=== PATIENT | female | born 1985 | race Caucasian/White ===

== ENCOUNTER 2017-08-31 12:06 | Day surgery (SDC) | payer OTHER ==
[2017-08-24 14:29] VITALS: BMI 24.2
[~2017-08-31 12:06] MED LIST: DEXAMETHASONE SOD PHOSPHATE 10 MG/ML 1 ML VIAL IV ONE; DEXAMETHASONE SOD PHOSPHATE 4 MG/ML 1 ML VIAL IV ONE; FAMOTIDINE 20 MG/2 ML VIAL IV ONE; LIDOCAINE 1% 20 ML VIAL (10MG/ML) FOR IV START INTRADERMA PRN; ONDANSETRON 4 MG/2 ML VIAL IVP ONE; SCOPOLAMINE 1.5MG/72HR PATCH TRANSDERM ONE; ceFAZolin IN SWFI 2 GM/20 ML SYRINGE IVP ONE; fentaNYL (PF) 50 MCG/ML 2 ML AMP IV PRN
[2017-08-31] MEDS: OXYMETAZOLINE 0.05% NASL SPRAY 1 SPRAY BOTTLE NASAL ONE ×5 (13:45→14:11)
[2017-08-31] MEDS: LACTATED RINGERS 1,000 ML IV SCH ×2 (13:56→14:53)
[2017-08-31] MEDS ORDERED: fentaNYL (PF) 50 MCG/ML 2 ML AMP ONE (14:53)
[2017-08-31] MEDS ORDERED: MIDAZOLAM 2 MG/2 ML VIAL ONE (14:53)
[2017-08-31] MEDS ORDERED: ROCURONIUM BROMIDE 10 MG/ML 10 ML VIAL IV ONE (14:53)
[2017-08-31] MEDS ORDERED: DEXAMETHASONE SOD PHOS (MDV) 100 MG/10 ML VIAL ONE (14:53)
[2017-08-31] MEDS ORDERED: LIDOCAINE 1% INJ 10MG/ML (20 ML MDV) ONE (14:53)
[2017-08-31] MEDS ORDERED: ONDANSETRON 4 MG/2 ML VIAL ONE (14:53)
[2017-08-31] MEDS ORDERED: PROPOFOL 10 MG/ML 20 ML VIAL IV ONE (14:53)
[2017-08-31] MEDS ORDERED: MEPERIDINE 50 MG/ML SYRINGE ONE (14:53)
[2017-08-31] MEDS ORDERED: LIDOCAINE 1%-EPI 1:100,000 30 ML VIAL SUBMUCOSAL ONE (15:28)
[2017-08-31] MEDS ORDERED: EPINEPHrine 1 MG/ML (MDV) 30 ML VIAL TOPICAL ONE (15:30)
[2017-08-31] MEDS ORDERED: BACITRACIN 500 UNIT/GM OINT 28.4 GM TUBE TOPICAL ONE (16:37)
[2017-08-31] MEDS ORDERED: LACTATED RINGERS 1,000 ML IV ONE (17:07)
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
[2017-08-31 17:49] VITALS: TEMP 97.6
[2017-08-31 18:53] VITALS: RESP 16
[2017-08-31] MEDS ORDERED: HYDROcodone/APAP 5-325MG 1 EACH TAB PO ONE (19:00)
[2017-08-31 19:18] VITALS: BP 121/78; PULSE 84
== END 2017-08-31 20:47 | disposition home or self-care (01) ==
LOC: OR 12:06
PROVIDERS: ATTEND Otolaryngology
DX: J34.2 Deviated nasal septum (principal); M95.0 Acquired deformity of nose; J34.3 Hypertrophy of nasal turbinates; G61.81 Chronic inflammatory demyelinating polyneuritis; H60.543 Acute eczematoid otitis externa, bilateral; J30.9 Allergic rhinitis, unspecified; H90.3 Sensorineural hearing loss, bilateral; F41.9 Anxiety disorder, unspecified; F32.9 Major depressive disorder, single episode, unspecified; Z79.899 Other long term (current) drug therapy; Z79.1 Long term (current) use of non-steroidal anti-inflammatories (NSAID); Z98.51 Tubal ligation status
CPT/HCPCS: 30140; 30420; 81025; 88300; J0171; J2250; J1100 ×2; J2175; J2405; J2001; J3010; J2704; J0690

== ENCOUNTER → 2018-08-10 | Outpatient (CLI) | payer OTHER ==
[2018-08-10 11:34] LABS: Basophils % (A) 1 %; Eosinophils # (A) 0.2 k/uL (0-0.7); Eosinophils % (A) 4 %; HCT 39.7 % (34.0-46.0); HGB 12.4 gm/dL (11.4-16.0); Lymphocytes # (A) 1.5 k/uL (1.0-4.8); Lymphocytes % (A) 34 %; MCH 29.8 pg (25.0-35.0); MCHC 31.1 g/dL (31.0-37.0); MCV 95.8 fL (80.0-100.0); Mean Platelet Volume 8.6; Monocytes # (A) 0.3 k/uL (0-1.0); Monocytes % (A) 6 %; Neutrophils # (A) 2.3 k/uL (1.3-7.7); Neutrophils % (A) 53 %; Platelet Count 206 k/uL (150-450); RBC 4.15 m/uL (3.80-5.40); RDW 12.9 % (11.5-15.5); WBC 4.4 k/uL (3.8-10.6)
== END | disposition home or self-care (01) ==
LOC: LABPAT 10:51
PROVIDERS: ATTEND Obstetrics & Gynecology
DX: Z01.812 Encounter for preprocedural laboratory examination (principal); N93.8 Other specified abnormal uterine and vaginal bleeding
CPT/HCPCS: 36415; 85025

== ENCOUNTER → 2018-08-21 | Day surgery (SDC) | payer OTHER ==
[2018-08-10 12:11] VITALS: BMI 24.2
[~2018-08-21] MED LIST changes: -DEXAMETHASONE SOD PHOSPHATE 4 MG/ML 1 ML VIAL IV ONE; -FAMOTIDINE 20 MG/2 ML VIAL IV ONE; +KETOROLAC 30 MG/ML 1 ML VIAL ONE; +LACTATED RINGERS 1,000 ML IV SCH; +LIDOCAINE 1% INJ 10MG/ML (20 ML MDV) ONE; +LIDOCAINE 1%-EPI 1:100,000 20 ML VIAL SUBMUCOSAL ONE; +MIDAZOLAM 2 MG/2 ML VIAL IV PRN; +MIDAZOLAM 2 MG/2 ML VIAL ONE; +PROPOFOL 10 MG/ML 20 ML VIAL IV ONE; +Pre Op ABX Message 1 EACH MISC MISCELLANE ONE; -ceFAZolin IN SWFI 2 GM/20 ML SYRINGE IVP ONE; -fentaNYL (PF) 50 MCG/ML 2 ML AMP IV PRN; +fentaNYL (PF) 50 MCG/ML 2 ML AMP ONE
[2018-08-21 09:16] VITALS: TEMP 97.6
--- NOTE | 2018-08-21 09:16 | P.OP ---
Date of Procedure: 08/21/18 Preoperative Diagnosis: Dysmenorrhea and menorrhagia Postoperative Diagnosis: Same Procedure(s) Performed: Diagnostic hysteroscopy and NovaSure endometrial ablation Anesthesia: MAC Surgeon: Roxanna Stewart Estimated Blood Loss (ml): 5 IV fluids (ml): 400 Urine output (ml): 100 Pathology: none sent Condition: stable Disposition: PACU Operative Findings: Normal appearing intrauterine cavity with no intracavitary lesions Description of Procedure: After the patient and her family were met in the preoperative holding area and all questions were answered, she was taken to the operating room where anest hetic was administered without incident. Appropriate timeout procedure was undertaken. She was in positioned, prepped and draped in the dorsal lithotomy position. Bladder was drained for approximately 100 mL of clear urine [place] sided speculum was placed in the vagina and the cervix was grasped anteriorly with a single-tooth tenaculum. The uterus was sounded to 7.5 cm. Paracervical block with lidocaine plus epinephrine. The cervix was then sequentially dilated with Hegar dilators. The cervix was quite firm. The tenaculum did pull through of the anterior of the cervix during the dilation process and was replaced. The diagnostic hysteroscope was then introduced and a normal-appearing intrauterine cavity was appreciated. Hysteroscope was removed and the cervix was further dilated to allow for passage of the NovaSure ablation device. The device was inserted with a cavity length of 4.5 cm and a width of 3.1 cm. Cavity assessment test was passed and the device was enabled for a treatment cycle of 88 seconds at a power of 77 W. Following cessation of the treatment cycle the device was removed. The hysteroscope was reintroduced and complete desiccation of the endometrium was appreciated. Hysteroscope was removed. Tenaculum was removed and a single [id number] stitch with 2-0 Vicryl suture was placed at the tenaculum site where it had pulled through. Hemostasis was noted. Speculum was then removed from the vagina. Patient was awoken from anesthetic without incident and transported recovery area in stable condition. All counts reported to me as correct by the operating room staff.
[2018-08-21 09:19] VITALS: RESP 16
[2018-08-21] MEDS: HYDROmorphone 0.5 MG/0.5 ML SYRINGE IVP PRN ×2 (09:27→09:38)
[2018-08-21 10:58] VITALS: BP 110/61; PULSE 63
== END | disposition home or self-care (01) ==
LOC: OR 07:12
PROVIDERS: ATTEND Obstetrics & Gynecology
DX: N92.0 Excessive and frequent menstruation with regular cycle (principal); N94.6 Dysmenorrhea, unspecified; Z98.51 Tubal ligation status; F32.9 Major depressive disorder, single episode, unspecified; Z79.899 Other long term (current) drug therapy
CPT/HCPCS: 81025; 58563; J2250; J1100; J2405; J2001; J3010; J1885; J2704; J1170

== ENCOUNTER 2018-10-11 14:54 | Emergency (ER) | payer OTHER ==
[2018-10-11 15:14] VITALS: TEMP 99
[2018-10-11] MEDS ORDERED: KETOROLAC 30 MG/ML 1 ML VIAL IVP STA (15:31)
[2018-10-11] MEDS ORDERED: SODIUM CHLORIDE 0.9% 1,000 ML IV STA (15:31)
--- NOTE | 2018-10-11 15:56 | ED ---
General Adult HPI - General Chief complaint: Abdominal Pain Stated complaint: Lower R abd pain Time Seen by Provider: 10/11/18 15:15 Source: patient, RN notes reviewed Mode of arrival: ambulatory Limitations: no limitations - History of Present Illness Initial comments: 33-year-old female presents to the emergency department for chief complaint of lower abdominal pain. Patient states that this has been intermittent over the past several months however this worsened significantly today. States it is radiating into her leg and back. States her doctor sent her here as he is concerned for an abscess of the appendix. Denies any fevers or chills. Denies any pain with urinating. States bowel movements have been normal. No nausea or vomiting. Patient states she has had a tubal ligation. She has had an ablation as well. Patient has no other complaints at this time including shortness of breath, chest pain, nausea or vomiting, headache, or visual changes. - Related Data Home Medications Medication Instructions Recorded Confirmed Sertraline [Zoloft] 150 mg PO DAILY 10/26/15 08/10/18 buPROPion XL [Wellbutrin XL] 450 mg PO DAILY 08/10/18 08/10/18 traZODone HCL 50 mg PO HS 08/10/18 08/21/18 Allergies Allergy/AdvReac Type Severity Reaction Status Date / Time No Known Allergies Allergy Verified 08/21/18 07:24 Review of Systems ROS Statement: Those systems with pertinent positive or pertinent negative responses have been documented in the HPI. ROS Other: All systems not noted in ROS Statement are negative. Past Medical History Past Medical History: No Reported History Additional Past Medical History / Comment(s): HX OF CIDP(CHRONIC INFLAMMATORY DEMYELINATING POLYNEUROPATHY (STATES NO WEAKNESS NOW). History of Any Multi-Drug Resistant Organisms: None Reported Past Surgical History: Tubal Ligation, Uterine Ablation Additional Past Surgical History / Comment(s): TISSUE BX A CHILD -LEFT THIGHT AND ANKLE, JAW SURGERY FOR TMJ, D&C Past Anesthesia/Blood Transfusion Reactions: Family History of Problems w/ Anesthesia, Motion Sickness Additional Past Anesthesia/Blood Transfusion Reaction / Comment(s): MOTHER-PONV Past Psychological History: Anxiety, Depression Smoking Status: Never smoker Past Alcohol Use History: Occasional Past Drug Use History: None Reported - Past Family History Father Family Medical History: Hypertension Mother Family Medical History: No Reported History General Exam Limitations: no limitations General appearance: alert, in no apparent distress Head exam: Present: atraumatic, normocephalic, normal inspection Eye exam: Present: normal appearance, PERRL, EOMI. Absent: scleral icterus, conjunctival injection, periorbital swelling ENT exam: Present: normal exam, mucous membranes moist Neck exam: Present: normal inspection, full ROM. Absent: tenderness, meningismus, lymphadenopathy Respiratory exam: Present: normal lung sounds bilaterally. Absent: respiratory distress, wheezes, rales, rhonchi, stridor Cardiovascular Exam: Present: regular rate, normal rhythm, normal heart sounds. Absent: systolic murmur, diastolic murmur, rubs, gallop, clicks GI/Abdominal exam: Present: soft, tenderness (Tenderness noted in the right lower quadrant with guarding), guarding, normal bowel sounds. Absent: distended, rebound, rigid Expanded GI/Abdominal exam: Present: obturator sign, Gunter's sign, Rovsing's sign Course Vital Signs 10/11/18 10/11/18 10/11/18 15:06 15:14 18:14 Temperature 99 F Pulse Rate 88 64 Respiratory 17 18 Rate Blood Pressure 135/98 116/77 O2 Sat by Pulse 98 97 Oximetry Medical Decision Making - Medical Decision Making 33-year-old female presents to the emergency department for chief complaint of right lower quadrant pain. States has been intermittent over the past several months however this worsened significantly today. States it is radiating into her leg and back. Dr. Lelia MEJIA sent her here for concern of appendicitis. Denies any fevers or chills. History of tubal ligation. On examination of the right lower quadrant tenderness without guarding or rebound. Does have a positive obturator sign as well as McBurney point tenderness. CBC CMP un remarkable. Urine does not show any evidence of infection. HCG is negative. CT abdomen and pelvis showed no acute process. Reproductive organs show no significant abnormality. Appendix is negative. Patient is feeling better at this time after Toradol. At this time it could have been a cyst that ruptured which I discussed with patient. However he did tell her to follow up with primary care and CRYPTOLOGIST and to return here if she has any worsening symptoms. She does agree. - Lab Data Result diagrams: 10/11/18 16:10 10/11/18 16:10 Lab Results 10/11/18 10/11/18 10/11/18 Range/Units 16:10 16:10 16:10 WBC 6.0 (3.8-10.6) k/uL RBC 4.24 (3.80-5.40) m/uL Hgb 13.2 (11.4-16.0) gm/dL Hct 39.2 (34.0-46.0) % MCV 92.6 (80.0-100.0) fL MCH 31.2 (25.0-35.0) pg MCHC 33.7 (31.0-37.0) g/dL RDW 12.2 (11.5-15.5) % Plt Count 238 (150-450) k/uL Neutrophils % 65 % Lymphocytes % 24 % Monocytes % 6 % Eosinophils % 3 % Basophils % 1 % Neutrophils # 3.9 (1.3-7.7) k/uL Lymphocytes # 1.5 (1.0-4.8) k/uL Monocytes # 0.4 (0-1.0) k/uL Eosinophils # 0.2 (0-0.7) k/uL Basophils # 0.0 (0-0.2) k/uL Sodium 138 (137-145) mmol/L Potassium 4.2 (3.5-5.1) mmol/L Chloride 107 (98-107) mmol/L Carbon Dioxide 25 (22-30) mmol/L Anion Gap 6 mmol/L BUN 15 (7-17) mg/dL Creatinine 0.75 (0.52-1.04) mg/dL Est GFR (CKD-EPI)AfAm >90 (>60 ml/min/1.73 sqM) Est GFR (CKD-EPI)NonAf >90 (>60 ml/min/1.73 sqM) Glucose 89 (74-99) mg/dL Plasma Lactic Acid Crow (0.7-2.0) mmol/L Calcium 10.1 (8.4-10.2) mg/dL Total Bilirubin 0.4 (0.2-1.3) mg/dL AST 35 (14-36) U/L ALT 20 (9-52) U/L Alkaline Phosphatase 75 (38-126) U/L Total Protein 6.7 (6.3-8.2) g/dL Albumin 4.4 (3.5-5.0) g/dL Amylase 82 (30-110) U/L Lipase 137 (23-300) U/L Urine Color Urine Appearance (Clear) Urine pH (5.0-8.0) Ur Specific Liberal (1.001-1.035) Urine Protein (Negative) Urine Glucose (UA) (Negative) Urine Ketones (Negative) Urine Blood (Negative) Urine Nitrite (Negative) Urine Bilirubin (Negative) Urine Urobilinogen (<2.0) mg/dL Ur Leukocyte Esterase (Negative) Urine RBC (0-5) /hpf Urine WBC (0-5) /hpf Ur Squamous Epith Cells (0-4) /hpf Urine Bacteria (None) /hpf Urine Mucus (None) /hpf Urine HCG, Qual Not Detected (Not Detectd) 10/11/18 10/11/18 Range/Units 16:10 16:10 WBC (3.8-10.6) k/uL RBC (3.80-5.40) m/uL Hgb (11.4-16.0) gm/dL Hct (34.0-46.0) % MCV (80.0-100.0) fL MCH (25.0-35.0) pg MCHC (31.0-37.0) g/dL RDW (11.5-15.5) % Plt Count (150-450) k/uL Neutrophils % % Lymphocytes % % Monocytes % % Eosinophils % % Basophils % % Neutrophils # (1.3-7.7) k/uL Lymphocytes # (1.0-4.8) k/uL Monocytes # (0-1.0) k/uL Eosinophils # (0-0.7) k/uL Basophils # (0-0.2) k/uL Sodium (137-145) mmol/L Potassium (3.5-5.1) mmol/L Chloride (98-107) mmol/L Carbon Dioxide (22-30) mmol/L Anion Gap mmol/L BUN (7-17) mg/dL Creatinine (0.52-1.04) mg/dL Est GFR (CKD-EPI)AfAm (>60 ml/min/1.73 sqM) Est GFR (CKD-EPI)NonAf (>60 ml/min/1.73 sqM) Glucose (74-99) mg/dL Plasma Lactic Acid Crow 0.6 L (0.7-2.0) mmol/L Calcium (8.4-10.2) mg/dL Total Bilirubin (0.2-1.3) mg/dL AST (14-36) U/L ALT (9-52) U/L Alkaline Phosphatase (38-126) U/L Total Protein (6.3-8.2) g/dL Albumin (3.5-5.0) g/dL Amylase (30-110) U/L Lipase (23-300) U/L Urine Color Yellow Urine Appearance Cloudy H (Clear) Urine pH 5.5 (5.0-8.0) Ur Specific Liberal 1.030 (1.001-1.035) Urine Protein Negative (Negative) Urine Glucose (UA) Negative (Negative) Urine Ketones Negative (Negative) Urine Blood Negative (Negative) Urine Nitrite Negative (Negative) Urine Bilirubin Negative (Negative) Urine Urobilinogen <2.0 (<2.0) mg/dL Ur Leukocyte Esterase Negative (Negative) Urine RBC 6 H (0-5) /hpf Urine WBC 2 (0-5) /hpf Ur Squamous Epith Cells 18 H (0-4) /hpf Urine Bacteria Rare H (None) /hpf Urine Mucus Occasional H (None) /hpf Urine HCG, Qual (Not Detectd) Disposition Clinical Impression: Abdominal pain Disposition: HOME SELF-CARE Condition: Good Instructions (If sedation given, give patient instructions): Abdominal Pain (ED) Additional Instructions: Take Motrin and Tylenol for pain. Please follow up with CRYPTOLOGIST and primary care in 1-2 days. If you are having any worsening symptoms be sure to return here to the emergency department for reevaluation. Is patient prescribed a controlled substance at d/c from ED?: No Referrals: Stanton La MD [Primary Care Provider] - 1-2 days Time of Disposition: 19:33
[2018-10-11 16:26] LABS: Basophils % (A) 1 %; Eosinophils # (A) 0.2 k/uL (0-0.7); Eosinophils % (A) 3 %; HCT 39.2 % (34.0-46.0); HGB 13.2 gm/dL (11.4-16.0); Lymphocytes # (A) 1.5 k/uL (1.0-4.8); Lymphocytes % (A) 24 %; MCH 31.2 pg (25.0-35.0); MCHC 33.7 g/dL (31.0-37.0); MCV 92.6 fL (80.0-100.0); Mean Platelet Volume 7.9; Monocytes # (A) 0.4 k/uL (0-1.0); Monocytes % (A) 6 %; Neutrophils # (A) 3.9 k/uL (1.3-7.7); Neutrophils % (A) 65 %; Platelet Count 238 k/uL (150-450); RBC 4.24 m/uL (3.80-5.40); RDW 12.2 % (11.5-15.5)
[2018-10-11 16:36] LABS: ALT 20 U/L (9-52); AST 35 U/L (14-36); Albumin 4.4 g/dL (3.5-5.0); Alkaline Phosphatase 75 U/L (38-126); Amylase 82 U/L (30-110); Anion Gap 6 mmol/L; Blood Urea Nitrogen 15 mg/dL (7-17); Calcium 10.1 mg/dL (8.4-10.2); Carbon Dioxide 25 mmol/L (22-30); Chloride 107 mmol/L (98-107); Glucose 89 mg/dL (74-99); Lipase 137 U/L (23-300); Potassium 4.2 mmol/L (3.5-5.1); Sodium 138 mmol/L (137-145); Total Bilirubin 0.4 mg/dL (0.2-1.3); Total Protein 6.7 g/dL (6.3-8.2)
[2018-10-11 16:43] LABS: Appearance,Urine Cloudy (Clear); Bacteria,Urine Rare /hpf; Bilirubin,Urine Negative (Negative); Blood,Urine Negative (Negative); Color,Urine Yellow; Glucose,Urine (UA) Negative (Negative); Ketones,Urine Negative (Negative); Leukocyte Esterase,Urine Negative (Negative); Mucus,Urine Occasional /hpf; Nitrite,Urine Negative (Negative); PH, Urine 5.5 (5.0-8.0); Protein,Urine Negative (Negative); RBC,Urine 6 /hpf (0-5); Squamous Epithelial Cell,Urine 18 /hpf (0-4); Urobilinogen,Urine <2.0 mg/dL (<2.0); WBC,Urine 2 /hpf (0-5)
--- NOTE | 2018-10-11 18:14 | CT ---
EXAMINATION TYPE: CT abdomen pelvis w con DATE OF EXAM: 10/11/2018 COMPARISON: None HISTORY: Right lower quadrant pain. CT DLP: 619.8 mGycm Automated exposure control for dose reduction was used. TECHNIQUE: Helical acquisition of images was performed from the lung bases through the pelvis. CONTRAST: Performed without Oral Contrast and with IV Contrast, patient injected with 100 mL of Isovu e 370. FINDINGS: LUNG BASES: No significant abnormality is appreciated. LIVER/GB: No significant abnormality is appreciated. PANCREAS: No significant abnormality is seen. SPLEEN: No significant abnormality is seen. ADRENALS: No significant abnormality is seen. KIDNEYS: No significant abnormality is seen. FREE AIR: No free air is visualized. RETROPERITONEAL ADENOPATHY: None visualized REPRODUCTIVE ORGANS: No significant abnormality is seen URINARY BLADDER: No significant abnormality is seen. PELVIC ADENOPATHY: None visualized. OSSEOUS STRUCTURES: No significant abnormality is seen. BOWEL: No significant abnormality is seen. Appendix is negative. OTHER: No acute vascular findings. IMPRESSION: NO ACUTE PROCESS.
[2018-10-11 18:54] VITALS: BP 116/77; PULSE 64; RESP 18
[2018-10-14 14:25] LABS: C. trachomatis,PCR Negative (Neg,Equiv); Chlamydia trachomatis Source Urine
[2018-10-14 14:30] LABS: N. gonorrhoeae,PCR Negative (Neg,Equiv); Neisseria Source Urine
== END 2018-10-11 20:00 | disposition home or self-care (01) ==
LOC: EC 14:54
DX: R10.31 Right lower quadrant pain (principal); F32.9 Major depressive disorder, single episode, unspecified; F41.9 Anxiety disorder, unspecified; Z79.899 Other long term (current) drug therapy; Z98.51 Tubal ligation status
CPT/HCPCS: 36415; 80053; 82150; 83605; 83690; 85025; 81001; 81025; 87491; 87591; 74177; 99284; 96374; 96361; J1885; Q9967

== ENCOUNTER → 2019-12-31 | Outpatient (CLI) | payer BC ==
--- NOTE | 2019-12-31 19:00 | ECHOF ---
Referral Reason:R06.09 other forms of dyspnea MEASUREMENTS -------- HEIGHT: 167.6 cm WEIGHT: 68.0 kg BP: RVIDd: 2.8 cm (< 3.3) IVSd: 0.9 cm (0.6 - 1.1) LVIDd: 4.3 cm (3.9 - 5.3) LVPWd: 0.8 cm (0.6 - 1.1) IVSs: 1.2 cm LVIDs: 2.9 cm LVPWs: 1.3 cm LA Diam: 2.9 cm (2.7 - 3.8) Ao Diam: 2.8 cm (2.0 - 3.7) AV Cusp: 2.0 cm (1.5 - 2.6) MV EXCURSION: 17.202 mm (> 18.000) MV EF SLOPE: 122 mm/s (70 - 150) EPSS: 0.5 cm MV E Danny: 0.81 m/s MV DecT: 231 ms MV A Danny: 0.55 m/s MV E/A Ratio: 1.49 RAP: 5.00 mmHg RVSP: 23.43 mmHg FINDINGS -------- Sinus rhythm. This was a technically good study. The left ventricular size is normal. Left ventricular wall thickness is normal. Overall left vent ricular systolic function is normal with, an EF between 60 - 65 %. The right ventricle is normal in size. Normal LA size by volume 22+/-6 ml/m2. The right atrium is normal in size. Interatrial and interventricular septum intact. The aortic valve is trileaflet and appears structurally normal. The mitral valve is normal. Mild tricuspid regurgitation present. Right ventricular systolic pressure is normal at < 35 mmHg. Trace/mild (physiologic) pulmonic regurgitation. The aortic root size is normal. Normal inferior vena cava with normal inspiratory collapse consistent with estimated right atrial pre ssure of 5 mmHg. There is no pericardial effusion. CONCLUSIONS -------- 1. The left ventricular size is normal. 2. Left ventricular wall thickness is normal. 3. Overall left ventricular systolic function is normal with, an EF between 60 - 65 %. 4. Mild tricuspid regurgitation present. 5. Trace/mild (physiologic) pulmonic regurgitation. 6. There is no pericardial effusion. FOWL BLOOD TESTER: Ana Griffin [facility]
== END | disposition home or self-care (01) ==
LOC: RADECHMAIN 14:27
PROVIDERS: ATTEND Family Medicine
DX: I07.1 Rheumatic tricuspid insufficiency (principal)
CPT/HCPCS: 93306

== ENCOUNTER 2020-09-28 12:33 | Emergency (ER) | payer BC ==
[2020-09-28 12:42] VITALS: BP 117/78; PULSE 129; TEMP 98.1
--- NOTE | 2020-09-28 13:17 | ED ---
General Adult HPI - General Chief complaint: Upper Respiratory Infection Stated complaint: Covid+, nausea, vomiting, SOB Time Seen by Provider: 09/28/20 12:44 Source: patient Mode of arrival: ambulatory Limitations: no limitations - History of Present Illness Initial comments: 35-year-old female presents to emergency Department with a chief complaint of cough shortness of breath and fatigue. States the symptoms have began approximately 7 days ago with no improvement. States her tested positive Covid and she began experiencing similar symptoms. States she was never tested for it. She also reports nausea and multiple episodes nonbilious a nd nonbloody vomiting. Patient reports exertional dyspnea with pleuritic chest pain when taking deep breaths. She reports a productive cough with green sputum production. She reports chills but no fevers. Denies any abdominal pain or back pain. Denies taking medication to alleviate the symptoms. No history of smoking asthma or COPD. - Related Data Home Medications Medication Instructions Recorded Confirmed Sertraline [Zoloft] 150 mg PO DAILY 10/26/15 08/10/18 buPROPion XL [Wellbutrin XL] 450 mg PO DAILY 08/10/18 08/10/18 traZODone HCL 50 mg PO HS 08/10/18 08/21/18 Previous Rx's Medication Instructions Recorded Azithromycin [Zithromax Z-pack (6 0 mg PO DIRECTED #1 pack 09/28/20 tabs)] Allergies Allergy/AdvReac Type Severity Reaction Status Date / Time No Known Allergies Allergy Verified 09/28/20 12:38 Review of Systems ROS Statement: Those systems with pertinent positive or pertinent negative responses have been documented in the HPI. ROS Other: All systems not noted in ROS Statement are negative. Past Medical History Past Medical History: No Reported History Additional Past Medical History / Comment(s): HX OF CIDP(CHRONIC INFLAMMATORY DEMYELINATING POLYNEUROPATHY, herniated disc History of Any Multi-Drug Resistant Organisms: None Reported Past Surgical History: Tubal Ligation, Uterine Ablation Additional Past Surgical History / Comment(s): TISSUE BX A CHILD -LEFT THIGHT AND ANKLE, JAW SURGERY FOR TMJ, D&C , nasal surgery Past Anesthesia/Blood Transfusion Reactions: Family History of Problems w/ Anesthesia, Motion Sickness Additional Past Anesthesia/Blood Transfusion Reaction / Comment(s): MOTHER-PONV Past Psychological History: Anxiety, Depression Smoking Status: Never smoker Past Alcohol Use History: Occasional Past Drug Use History: None Reported - Past Family History Father Family Medical History: Hypertension Mother Family Medical History: No Reported History General Exam Limitations: no limitations General appearance: alert, in no apparent distress Head exam: Present: atraumatic, normocephalic, normal inspection Eye exam: Present: normal appearance, PERRL, EOMI Pupils: Present: normal accommodation ENT exam: Present: normal exam, normal oropharynx, mucous membranes moist, TM's normal bilaterally, normal external ear exam Neck exam: Present: normal inspection, full ROM. Absent: tenderness Respiratory exam: Present: normal lung sounds bilaterally. Absent: respiratory distress, wheezes, rales, rhonchi, stridor, chest wall tenderness, accessory muscle use Cardiovascular Exam: Present: regular rate, normal rhythm, normal heart sounds. Absent: systolic murmur GI/Abdominal exam: Present: soft. Absent: distended, tenderness, guarding, rebound Extremities exam: Present: normal inspection, full ROM, normal capillary refill. Absent: tenderness, pedal edema, joint swelling Back exam: Present: normal inspection. Absent: full ROM, tenderness, CVA tenderness (R), CVA tenderness (L) Neurological exam: Present: alert, oriented X3 Psychiatric exam: Present: normal affect, normal mood Skin exam: Present: warm, dry, intact, normal color Course Vital Signs 09/28/20 09/28/20 12:38 13:43 Temperature 98.1 F Pulse Rate 129 H Respiratory 18 16 Rate Blood Pressure 117/78 O2 Sat by Pulse 97 Oximetry Medical Decision Making - Medical Decision Making 35-year-old female presents to emergency Department with a chief complaint of cough shortness of breath and fatigue. On physical examination, patient does not appear to be in respiratory distress. Vital signs are within normal limits except for the heart rate where the patient is tachycardic with a rate of 129. Chest x-ray reveals patchy right basilar infiltrate which could be correlated for early pneumonia. CBC, CMP, coags and d-dimer negative. She also tested positive Covid. She was given IV bolus fluid. I will cover for atypical pneumonia considering she has decreased sputum production with only right basilar infiltrate. We'll start a Z-Vishnu. Return parameters discussed with patient is upsetting agreeable. Case discussed with - Lab Data Result diagrams: 09/28/20 13:32 09/28/20 13:32 Lab Results 09/28/20 09/28/20 09/28/20 Range/Units 13:32 13:32 13:32 WBC 10.5 (3.8-10.6) k/uL RBC 4.70 (3.80-5.40) m/uL Hgb 14.6 (11.4-16.0) gm/dL Hct 42.6 (34.0-46.0) % MCV 90.6 (80.0-100.0) fL MCH 31.1 (25.0-35.0) pg MCHC 34.4 (31.0-37.0) g/dL RDW 11.5 (11.5-15.5) % Plt Count 327 (150-450) k/uL MPV 8.0 Neutrophils % 89 % Lymphocytes % 7 % Monocytes % 2 % Eosinophils % 1 % Basophils % 0 % Neutrophils # 9.3 H (1.3-7.7) k/uL Lymphocytes # 0.7 L (1.0-4.8) k/uL Monocytes # 0.2 (0-1.0) k/uL Eosinophils # 0.1 (0-0.7) k/uL Basophils # 0.1 (0-0.2) k/uL PT (9.0-12.0) sec INR (<1.2) APTT (22.0-30.0) sec D-Dimer (<0.60) mg/L FEU Sodium 139 (137-145) mmol/L Potassium 4.1 (3.5-5.1) mmol/L Chloride 106 (98-107) mmol/L Carbon Dioxide 24 (22-30) mmol/L Anion Gap 9 mmol/L BUN 12 (7-17) mg/dL Creatinine 0.63 (0.52-1.04) mg/dL Est GFR (CKD-EPI)AfAm >90 (>60 ml/min/1.73 sqM) Est GFR (CKD-EPI)NonAf >90 (>60 ml/min/1.73 sqM) Glucose 156 H (74-99) mg/dL Calcium 8.7 (8.4-10.2) mg/dL Total Bilirubin 0.4 (0.2-1.3) mg/dL AST 24 (14-36) U/L ALT 24 (4-34) U/L Alkaline Phosphatase 96 (38-126) U/L Total Protein 6.2 L (6.3-8.2) g/dL Albumin 3.6 (3.5-5.0) g/dL Influenza Type A (PCR) Not Detected (Not Detectd) Influenza Type B (PCR) Not Detected (Not Detectd) RSV (PCR) Not Detected (Not Detectd) SARS-CoV-2 (PCR) Detected A (Not Detectd) 09/28/20 Range/Units 13:32 WBC (3.8-10.6) k/uL RBC (3.80-5.40) m/uL Hgb (11.4-16.0) gm/dL Hct (34.0-46.0) % MCV (80.0-100.0) fL MCH (25.0-35.0) pg MCHC (31.0-37.0) g/dL RDW (11.5-15.5) % Plt Count (150-450) k/uL MPV Neutrophils % % Lymphocytes % % Monocytes % % Eosinophils % % Basophils % % Neutrophils # (1.3-7.7) k/uL Lymphocytes # (1.0-4.8) k/uL Monocytes # (0-1.0) k/uL Eosinophils # (0-0.7) k/uL Basophils # (0-0.2) k/uL PT 9.6 (9.0-12.0) sec INR 0.9 (<1.2) APTT 27.8 (22.0-30.0) sec D-Dimer 0.21 (<0.60) mg/L FEU Sodium (137-145) mmol/L Potassium (3.5-5.1) mmol/L Chloride (98-107) mmol/L Carbon Dioxide (22-30) mmol/L Anion Gap mmol/L BUN (7-17) mg/dL Creatinine (0.52-1.04) mg/dL Est GFR (CKD-EPI)AfAm (>60 ml/min/1.73 sqM) Est GFR (CKD-EPI)NonAf (>60 ml/min/1.73 sqM) Glucose (74-99) mg/dL Calcium (8.4-10.2) mg/dL Total Bilirubin (0.2-1.3) mg/dL AST (14-36) U/L ALT (4-34) U/L Alkaline Phosphatase (38-126) U/L Total Protein (6.3-8.2) g/dL Albumin (3.5-5.0) g/dL Influenza Type A (PCR) (Not Detectd) Influenza Type B (PCR) (Not Detectd) RSV (PCR) (Not Detectd) SARS-CoV-2 (PCR) (Not Detectd) - EKG Data EKG Comments: Sinus tachycardia Ventricular rate 119, MT 152, QRS 86, QT C 433. Disposition Clinical Impression: COVID-19, Pneumonia Disposition: HOME SELF-CARE Condition: Stable Instructions (If sedation given, give patient instructions): Coronavirus Disease 2019 (COVID-19) Additional Instructions: Please return to the Emergency Department if symptoms worsen or any other concerns. Prescriptions: Azithromycin [Zithromax Z-pack (6 tabs)] 0 mg PO DIRECTED #1 pack Is patient prescribed a controlled substance at d/c from ED?: No Referrals: Stanton La MD [Primary Care Provider] - 1-2 days Time of Disposition: 14:37
[2020-09-28] MEDS ORDERED: SODIUM CHLORIDE 0.9% 1,000 ML IV STA (13:28)
--- NOTE | 2020-09-28 13:38 | XR ---
EXAMINATION TYPE: XR chest 1V portable DATE OF EXAM: 09/28/2020 COMPARISON: 01/13/2020 HISTORY: Cough TECHNIQUE: Single frontal view of the chest is obtained. FINDINGS: There is patchy right lower lobe infiltrate correlate for pneumonia. No pleural effusion o r pneumothorax. Heart size normal. No overt failure. Osseous structures intact. Mild prominence of th e interstitium. IMPRESSION: Patchy right basilar infiltrate correlate for early pneumonia. Superimposed interstitial pneumonitis not excluded.
[2020-09-28 13:44] LABS: Basophils # (A) 0.1 k/uL (0-0.2); Basophils % (A) 0 %; Eosinophils # (A) 0.1 k/uL (0-0.7); Eosinophils % (A) 1 %; HCT 42.6 % (34.0-46.0); HGB 14.6 gm/dL (11.4-16.0); Lymphocytes # (A) 0.7 k/uL (1.0-4.8); Lymphocytes % (A) 7 %; MCH 31.1 pg (25.0-35.0); MCHC 34.4 g/dL (31.0-37.0); MCV 90.6 fL (80.0-100.0); Monocytes # (A) 0.2 k/uL (0-1.0); Monocytes % (A) 2 %; Neutrophils # (A) 9.3 k/uL (1.3-7.7); Neutrophils % (A) 89 %; Platelet Count 327 k/uL (150-450); RDW 11.5 % (11.5-15.5); WBC 10.5 k/uL (3.8-10.6)
[2020-09-28 13:47] VITALS: RESP 16
[2020-09-28 13:57] LABS: ALT 24 U/L (4-34); AST 24 U/L (14-36); African American GFR (CKD) >90 (>60 ml/min/1.73 sqM); Albumin 3.6 g/dL (3.5-5.0); Alkaline Phosphatase 96 U/L (38-126); Anion Gap 9 mmol/L; Blood Urea Nitrogen 12 mg/dL (7-17); Calcium 8.7 mg/dL (8.4-10.2); Carbon Dioxide 24 mmol/L (22-30); Chloride 106 mmol/L (98-107); Glucose 156 mg/dL (74-99); Non-African American GFR(CKD) >90 (>60 ml/min/1.73 sqM); Potassium 4.1 mmol/L (3.5-5.1); Sodium 139 mmol/L (137-145); Total Bilirubin 0.4 mg/dL (0.2-1.3); Total Protein 6.2 g/dL (6.3-8.2)
[2020-09-28 13:58] LABS: D-Dimer 0.21 mg/L FEU (<0.60); INR 0.9 (<1.2); Partial Thromboplastin Time 27.8 sec (22.0-30.0); Prothrombin Time 9.6 sec (9.0-12.0)
== END 2020-09-28 14:52 | disposition home or self-care (01) ==
LOC: EC 12:33
DX: U07.1 COVID-19 (principal); J12.82 Pneumonia due to coronavirus disease 2019; G61.81 Chronic inflammatory demyelinating polyneuritis; Z82.49 Family history of ischemic heart disease and other diseases of the circulatory system
CPT/HCPCS: 36415; 71045; 80053; 85025; 85379; 85610; 85730; 87636; 93005; 99285

== ENCOUNTER → 2021-05-06 | Outpatient (CLI) | payer BC ==
--- NOTE | 2021-05-06 16:02 | FL ---
EXAMINATION TYPE: FL barium swallow DATE OF EXAM: 05/06/2021 CLINICAL INDICATION: 35-year-old female R07.0 THROAT PAIN W/BURNING, R13.10 DYSPHAGIA COMPARISON: None Total Fluoroscopy Time: 1 minute 30 seconds 38 images obtained. FINDINGS: The swallowing mechanism is normal and hypopharyngeal anatomy is preserved. There are some tracheal ring calcifications noted which are nonspecific. The cervical and thoracic portions have a normal course and caliber and normal motility. The mucosa is normal and no persistent filling defect is encountered. No hiatal hernia is present. No gastroesophageal reflux is identified. IMPRESSION: No specific abnormality on the barium swallow.
== END | disposition home or self-care (01) ==
LOC: RADUSWWP 10:41
PROVIDERS: ATTEND Otolaryngology
DX: R13.10 Dysphagia, unspecified (principal); R07.0 Pain in throat
CPT/HCPCS: 74220

== ENCOUNTER → 2021-05-12 | Outpatient (CLI) | payer BC ==
[2021-05-12 12:06] LABS: Ionized Calcium 5.4 mg/dL (4.5-5.3)
== END | disposition home or self-care (01) ==
LOC: LABWHC1 11:00
PROVIDERS: ATTEND Otolaryngology
DX: M61.9 Calcification and ossification of muscle, unspecified (principal)
CPT/HCPCS: 36415; 82306; 82330

== ENCOUNTER 2021-06-29 06:47 | Day surgery (SDC) | payer BC ==
[~2021-06-29 06:47] MED LIST changes: -DEXAMETHASONE SOD PHOSPHATE 10 MG/ML 1 ML VIAL IV ONE; -KETOROLAC 30 MG/ML 1 ML VIAL ONE; +LIDOCAINE 1% (10MG/ML) FOR IV START INTRADERMA PRN; -LIDOCAINE 1% 20 ML VIAL (10MG/ML) FOR IV START INTRADERMA PRN; -LIDOCAINE 1% INJ 10MG/ML (20 ML MDV) ONE; -LIDOCAINE 1%-EPI 1:100,000 20 ML VIAL SUBMUCOSAL ONE; -MIDAZOLAM 2 MG/2 ML VIAL IV PRN; -MIDAZOLAM 2 MG/2 ML VIAL ONE; -ONDANSETRON 4 MG/2 ML VIAL IVP ONE; -PROPOFOL 10 MG/ML 20 ML VIAL IV ONE; -Pre Op ABX Message 1 EACH MISC MISCELLANE ONE; -SCOPOLAMINE 1.5MG/72HR PATCH TRANSDERM ONE; -fentaNYL (PF) 50 MCG/ML 2 ML AMP ONE
[2021-06-29 07:14] VITALS: TEMP 98.8
[2021-06-29] MEDS ORDERED: PROPOFOL 10 MG/ML 20 ML VIAL IV ONE (07:27)
[2021-06-29] MEDS ORDERED: LIDOCAINE 1% INJ 10MG/ML (20 ML MDV) ONE (07:27)
[2021-06-29] MEDS ORDERED: MIDAZOLAM 2 MG/2 ML VIAL ONE (07:27)
--- NOTE | 2021-06-29 07:43 | P.PCN ---
Date of Procedure: 06/29/21 Procedure(s) Performed: BRIEF HISTORY: Patient is a 36-year-old, pleasant, white female scheduled for an upper endoscopy for evaluate of dysphagia since February 2021. Her symptoms are mostly with liquids and occasionally with solids. She recently had a barium swallow done which was unremarkable. Because of the persistent symptoms she is scheduled for an upper endoscopy to evaluate further. PROCEDURE PERFORMED: Esophagogastroduodenoscopy with biopsy PREOPERATIVE DIAGNOSIS: Dysphagia to liquids of 3 months duration IV sedation per anesthesia. PROCEDURE: After informed consent was obtained, the patient was brought into the endoscopy unit. IV sedation was administered by Anesthesia under continuous monitoring. Initially the Olympus GIF-140 video endoscope was inserted into the mouth. Esophagus intubated without any difficulty. It was gradually advanced into the stomach and duodenum and carefully examined. The bulb and the second part of the duodenum appeared normal. The scope at this time was withdrawn to the stomach, adequately insufflated with air, and upon careful examination, muco sa of the antrum had patchy areas of erythema consistent with gastritis and biopsies were done from this area. The, body, cardia and the fundus appeared normal. The scope was then withdrawn into the esophagus. The GE junction was located at 42 cm from the incisors. The esophagus appeared normal. There were no erosions or ulcerations seen, multiple biopsies were done from the mid and distal esophagus to rule out eosinophilic esophagitis and the patient tolerated the procedure well. IMPRESSION: 1. Normal-appearing esophagus with no evidence of esophagitis or esophageal stricture. 2. Mild antral gastritis. RECOMMENDATIONS: The findings of this examination were discussed with the patient as well as a family. She was advised to follow with the biopsy results. Continue with Prilosec 20 mg daily and follow antireflux measures and she'll be seen back in office in 3-4 weeks..
[2021-06-29 08:24] VITALS: BP 104/71; PULSE 74; RESP 16
== END 2021-06-29 08:25 | disposition home or self-care (01) ==
LOC: ORWHC2ENDO 06:47
PROVIDERS: ATTEND Internal Medicine Gastroenterology
DX: K29.70 Gastritis, unspecified, without bleeding (principal); R13.10 Dysphagia, unspecified; Z79.899 Other long term (current) drug therapy; G62.9 Polyneuropathy, unspecified; F41.9 Anxiety disorder, unspecified; F32.A Depression, unspecified; Z98.51 Tubal ligation status; Z98.890 Other specified postprocedural states
CPT/HCPCS: 81025; 88305; 43239; J2250; J2001; J2704

== ENCOUNTER 2024-10-25 18:21 | Emergency (ER) | payer BC ==
[2024-10-25 18:26] VITALS: TEMP 97.5
--- NOTE | 2024-10-25 19:02 | XR ---
EXAMINATION TYPE: XR chest 2V DATE OF EXAM: 10/25/2024 6:52 PM COMPARISON: 09/28/2020 CLINICAL INDICATION: Female, 39 years old with history of dorothea, TECHNIQUE: XR chest 2V view(s) obtained. FINDINGS: The heart size is normal. The pulmonary vasculature is normal. The lungs are clear. Nondisplaced fourth and fifth lateral right rib fractures are present. Correlate with the location of the patient's pain. No pneumothorax evident. No additional displaced rib fractures identified. No suspicious infiltrates to suggest pulmonary contusion. IMPRESSION: 1. No acute pulmonary process. 2. Nondisplaced fourth and fifth right rib fractures [facility], , 10/25/2024 7:00 PM
--- NOTE | 2024-10-25 19:11 | ED ---
General Adult HPI - General Chief complaint: Shortness of Breath Stated complaint: DARRON, rib injury follow-up Time Seen by Provider: 10/25/24 18:30 Source: patient, RN notes reviewed, old records reviewed Mode of arrival: ambulatory Limitations: no limitations - History of Present Illness Initial comments: 39-year-old female presenting for evaluation of right sided lateral chest pain. Patient has known rib fractures from a horse riding accident which occurred 2 weeks ago. Patient was seen at [facility] at that time and had pulmonary contusion and reported pneumothorax in addition to her rib fractures. She states she stayed 1 night and did not require a chest tube. She states she has been doing well taking minimal pain medication today she had worsening pain. This did occur several hours after a sneeze. Pain is worse with deep inspiration and in the site of known rib fractures. No abdominal pain. - Related Data Home Medications Medication Instructions Recorded Confirmed Sertraline [Zoloft] 200 mg PO DAILY 10/26/15 10/25/24 Cyclobenzaprine [Flexeril] 10 mg PO Q8H PRN 06/25/21 10/25/24 Acetaminophen [Tylenol] 975 mg PO Q8H 10/25/24 10/25/24 Calcium Carbonate [Calcium] 600 mg PO DAILY 10/25/24 10/25/24 Ibuprofen [Motrin] 600 mg PO Q6HR 10/25/24 10/25/24 Lidocaine 5% Patch [Lidoderm] 2 patch TOPICAL DAILY 10/25/24 10/25/24 Sennosides/Docusate Sodium 2 tab PO BID 10/25/24 10/25/24 [Senna-S 8.6-50 mg Tablet] Vitamin D3/Vitamin K2 (Mk4) 1 tab PO DAILY 10/25/24 10/25/24 [Vitamin K2 Plus D3 Tablet] clonazePAM [KlonoPIN] 1 mg PO HS PRN 10/25/24 10/25/24 oxyCODONE HCL [OxyIR] 5 mg PO Q6H PRN 10/25/24 10/25/24 polyethylene glycoL 3350 [Miralax] 17 gm PO DAILY 10/25/24 10/25/24 Allergies Allergy/AdvReac Type Severity Reaction Status Date / Time No Known Allergies Allergy Verified 10/25/24 18:53 Review of Systems ROS Statement: Those systems with pertinent positive or pertinent negative responses have been documented in the HPI. ROS Other: All systems not noted in ROS Statement are negative. Past Medical History Past Medical History: No Reported History Additional Past Medical History / Comment(s): CURRENT: DYSPAGIA. HX OF CIDP(CHRONIC INFLAMMATORY DEMYELINATING POLYNEUROPATHY, herniated disc History of Any Multi-Drug Resistant Organisms: None Reported Past Surgical History: Tubal Ligation, Uterine Ablation Additional Past Surgical History / Comment(s): TISSUE BX A CHILD -LEFT THIGHT AND ANKLE, JAW SURGERY FOR TMJ, D&C , nasal surgery Past Anesthesia/Blood Transfusion Reactions: Family History of Problems w/ Anesthesia, Motion Sickness Additional Past Anesthesia/Blood Transfusion Reaction / Comment(s): MOTHER-PONV Past Psychological History: Anxiety, Depression Smoking Status: Never smoker Past Alcohol Use History: Occasional Past Drug Use History: None Reported - Past Family History Father Family Medical History: Hypertension Mother Family Medical History: No Reported History General Exam Limitations: no limitations General appearance: alert, in no apparent distress Head exam: Present: atraumatic, normocephalic Eye exam: Present: normal appearance, PERRL ENT exam: Present: normal exam Neck exam: Present: normal inspection. Absent: tenderness, meningismus Respiratory exam: Present: chest wall tenderness. Absent: respiratory distress, wheezes, rales Cardiovascular Exam: Present: regular rate, normal rhythm GI/Abdominal exam: Present: soft. Absent: distended, tenderness, guarding Extremities exam: Present: normal inspection, normal capillary refill Neurological exam: Present: alert, oriented X3, CN II-XII intact. Absent: motor sensory deficit Psychiatric exam: Present: normal affect, normal mood Skin exam: Present: warm, dry, intact. Absent: cyanosis, diaphoretic Course Vital Signs 10/25/24 18:22 Temperature 97.5 F L Pulse Rate 68 Respiratory 16 Rate Blood Pressure 132/91 O2 Sat by Pulse 100 Oximetry Medical Decision Making - Medical Decision Making Was pt. sent in by a medical professional or institution ([facility]ay, BRAND STRATEGIST, urgent care, hospital, or assisted...) When possible be specific @ -No Did you speak to anyone other than the patient for history (EMS, parent, family, police, friend...)? What history was obtained from this source @ -No Did you review nursing and triage notes (agree or disagree)? Why? @ -I reviewed and agree with nursing and triage notes Were old charts reviewed (outside hosp., previous admission, EMS record, old EKG, old radiological studies, urgent care reports/EKG's, assisted records)? Report findings @ -No old charts were reviewed Differential Dyspnea: Coronary syndrome, arrhythmia, tamponade, asthma, COPD, pulmonary embolism, pneumonia, pneumothorax, pulmonary effusion, anaphylaxis, diabetic ketoacidosis, flailed chest, pulmonary contusion, diaphragmatic rupture, anemia, neuromuscular, this is not meant to be an all-inclusive list. EKG interpreted by me (3pts min.). @ -As above X-rays interpreted by me (1pt min.). @Chest x-ray showing nondisplaced rib fractures of the 4th and 5th rib, no underlying contusion, no pneumothorax CT interpreted by me (1pt min.). @ -None done U/S interpreted by me (1pt. min.). @ -None done What testing was considered but not performed or refused? (CT, X-rays, U/S, labs)? Why? @ -None What meds were considered but not given or refused? Why? @ -None Did you discuss the management of the patient with other professionals (professionals i.e. , PA, BRAND STRATEGIST, lab, RT, psych nurse, social services, endoscopy specialty technician, teacher, ski patrol officer, case assistant)? Give summary @ -No Was smoking cessation discussed for >3mins.? @ -No Was critical care preformed (if so, how long)? @ -No Were there social determinants of health that impacted care today? How? (Homelessness, low income, unemployed, alcoholism, drug addiction, transportation, low edu. Level, literacy, decrease access to med. care, skilled nursing, rehab)? @ -No Was there de-escalation of care discussed even if they declined (Discuss DNR or withdrawal of care, Hospice)? DNR status @ -No What co-morbidities impacted this encounter? (DM, HTN, Smoking, COPD, CAD, Cancer, CVA, ARF, Chemo, Hep., AIDS, mental health diagnosis, sleep apnea, morbid obesity)? @ -None Was patient admitted / discharged? Hospital course, mention meds given and route, prescriptions, significant lab abnormalities, going to OR and other pertinent info. @ -39-year-old female with known rib fracture after a horse riding accident 2 weeks ago presenting with pain at the site of injury. Patient did state that she sneezed earlier today and pain began within several hours after this event. No crepitus on exam. Good air entry bilaterally. X-ray is negative for pneumothorax or pulmonary contusion, showing nondisplaced rib fractures 4 and 5 laterally. Patient given intramuscular pain medication. She does have prescribed opiates at home and does have an incentive spirometer. Stable for discharge at this time. Undiagnosed new problem with uncertain prognosis? @ -No Drug Therapy requiring intensive monitoring for toxicity (Heparin, Nitro, Insulin, Cardizem)? @ -No Were any procedures done? @ -No Diagnosis/symptom? @Rib fracture Acute, or Chronic, or Acute on Chronic? @Acute Uncomplicated (without systemic symptoms) or Complicated (systemic symptoms)? @ -Default Side effects of treatment? @ -No Exacerbation, Progression, or Severe Exacerbation? @ -No Poses a threat to life or bodily function? How? (Chest pain, [place], ND, pneumonia, PE, COPD, DKA, ARF, appy, cholecystitis, CVA, Diverticulitis, Homicidal, Suicidal, threat to staff... and all critical care pts) @ -No Disposition Clinical Impression: Rib fractures Disposition: HOME SELF-CARE Condition: Fair Instructions (If sedation given, give patient instructions): Rib Fracture (ED) Is patient prescribed a controlled substance at d/c from ED?: No Referrals: Stanton La MD [Primary Care Provider] - 1-2 days Time of Disposition: 19:10
[2024-10-25] MEDS: HYDROmorphone 1 MG/ML 1 ML SYRINGE IVP STA (19:25)
[2024-10-25] MEDS: HYDROmorphone 1 MG/ML 1 ML SYRINGE IM STA (19:26)
[2024-10-25] MEDS: KETOROLAC 15 MG/ML 1 ML VIAL IM STA (19:28)
[2024-10-25 19:44] VITALS: BP 117/66; PULSE 61; RESP 17
== END 2024-10-25 19:44 | disposition home or self-care (01) ==
LOC: EC 18:21
DX: S22.41XA Multiple fractures of ribs, right side, initial encounter for closed fracture (principal); X58.XXXA Exposure to other specified factors, initial encounter; Y93.52 Activity, horseback riding
CPT/HCPCS: 71046; 99285; 96372 ×2; J1171; J1885

== ENCOUNTER → 2024-11-08 | Outpatient (CLI) | payer BC ==
--- NOTE | 2024-11-08 11:07 | XR ---
EXAMINATION TYPE: XR chest 2V DATE OF EXAM: 11/08/2024 11:04 AM COMPARISON: 11/08/2024 CLINICAL INDICATION: Female, 39 years old with history of J93.9 PNEUMOTHORAX, UNSPECIFIED S22.41XD MU LTIPLE, Chest pain TECHNIQUE: XR chest 2V views of the chest are obtained. FINDINGS: There is no focal air space opacity. No evidence for pneumothorax. No pleural effusion. The cardiac silhouette size is within normal limits. The osseous structures are grossly intact. IMPRESSION: 1. No acute cardiopulmonary process. [facility], , 11/08/2024 11:05 AM
--- NOTE | 2024-11-08 11:09 | XR ---
EXAMINATION TYPE: XR ribs RT DATE OF EXAM: 11/08/2024 CLINICAL HISTORY: Pain, Fall Four views of the ribs demonstrate fractures of right ribs 7 and 8. No evidence for overriding fractu re component. Visualized lungs are clear. No evidence for pneumothorax. IMPRESSION: Four views of the ribs demonstrate fractures of right ribs 7 and 8. [facility], , 11/08/2024 11:07 AM
== END | disposition home or self-care (01) ==
LOC: RADXRMAIN 10:40
PROVIDERS: ATTEND Family Medicine
DX: S22.41XD Multiple fractures of ribs, right side, subsequent encounter for fracture with routine healing (principal); J93.9 Pneumothorax, unspecified
CPT/HCPCS: 71046